=== PATIENT | female | born 1945 | race Caucasian/White ===

== ENCOUNTER → 2023-11-05 | Outpatient (CLI) | payer MEDICARE ==
--- NOTE | 2023-11-05 16:17 | XR ---
EXAMINATION TYPE: XR lumbosacral spine min 4V DATE OF EXAM: 11/05/2023 9:19 AM CLINICAL INDICATION:Female, 78 years old with history of [id number] SCIAT[facility]; [facility] COMPARISON: None TECHNIQUE: XR lumbosacral spine min 4V - 5 views including frontal lateral and obliques FINDINGS: There are 5 lumbar-type vertebral bodies. Bony mineralization appears appropriate. There is no evidence of vertebral body height loss or osseous destructive process. There is grade 1, approach ing grade 2, anterolisthesis L4 on L5 and L5 on S1 which appears degenerative. There is moderate mult ilevel degenerative disk disease greatest T12-L1, L4-L5 and L5-S1. Facet arthrosis in the mid to lowe r lumbar spine greatest at L4-L5 and L5-S1. There are at least mild to moderate neural foraminal sten oses at L4-L5 and L5-S1. Sacrum is grossly unremarkable. Mild degenerative changes of the SI joints. Moderate to heavy calcification of the abdominal aorta with mild tortuosity and areas of ectasia sugg ested but no yoana aneurysm. Infrarenal aorta measures up to about 2.8 cm on the lateral view. IMPRESSION: 1. No evidence of compression fracture. 2. 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
== END ==
LOC: RADXRYALE 08:45
PROVIDERS: ATTEND Internal Medicine
DX: M47.26 Other spondylosis with radiculopathy, lumbar region (principal); M43.17 Spondylolisthesis, lumbosacral region
CPT/HCPCS: 72110